=== PATIENT | male | born 1985 | race Caucasian/White ===

== ENCOUNTER → 2024-08-29 | Outpatient (CLI) | payer OTHER ==
--- NOTE | 2024-08-29 10:33 | US ---
EXAMINATION TYPE: US extremity nonvasculr ltd LT DATE OF EXAM: 08/29/2024 COMPARISON: NONE CLINICAL INDICATION: Male, 38 years old with history of M26.562 PAIN IN LEFT KNEE; Pt states left kne e pain TECHNIQUE: Left pop fossa FINDINGS/IMPRESSION: There is a elongated anechoic fluid collection without internal color flow withi n the left medial popliteal fossa. Measures 2.7 x 0.4 x 1.0 cm. 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 [facility], , 08/29/2024 10:30 AM
== END | disposition home or self-care (01) ==
LOC: RADUSWWP 10:13
PROVIDERS: ATTEND Family Medicine
DX: M25.562 Pain in left knee (principal)